=== PATIENT | male | born 1940 | race Caucasian/White ===

== ENCOUNTER 2016-06-14 12:41 | Day surgery (SDC) | payer MEDICARE, BC ==
[~2016-06-14 12:41] MED LIST: ASPIR 8181 M1 PO; AVELOX400 MG PO; BACTRIM DS TAB1 EAC2 PO; CALCIUM 600 +1 EA23 PO; CLINDAMYCIN HC300 M2 PO; COLACE100 MG PO; FLAGYL500 MG PO; FLOMAX0.4 M1 PO; GLIPIZIDE10 M1 PO; GLUCOPHAGE1000 M1 PO; GLUCOPHAGE1000 MG PO; HORMONE INJECTION; HUMALOG100 U/ML SC; HUMULIN 70100 UNIT/2 SC; HUMULIN 70100 UNIT/2 SQ; LEVAQUIN750 MG PO; LEVEMIR100 U/M SC; LOPRESSOR50 M1 PO; LORTAB 5-325 M1 EAC1 PO; MOXIFLOXACIN H400 MG PO; NEURONTIN600 M1 PO; NEURONTIN600 MG PO; NORCO 5/3251 TA1 PO; NOVOLIN 70100 UNITS/ SC; PROBIOTIC1 EA10 PO
[2016-06-14 13:27] LABS: BASO % 0.2 % (0-2); EOS % 1.6 % (0-7); EOSINOPHIL ABSOLUTE COUNT 0.1 tho/cmm (0.0-0.7); HCT-HEMATOCRIT 39.6 % (36.0-53.5); HGB-HEMOGLOBIN 12.9 gm/dl (13.5-17.0); IMMATURE GRANULOCYTES ABSOLUTE 0.02 tho/cmm (0-0.03); IMMATURE GRANULOCYTES PERCENT 0.4 % (0-0.3); LYMPH % 8.9 % (20-45); LYMPH ABSOLUTE COUNT 0.5 tho/cmm (0.8-4.5); MCHC MEAN CORPUSCULAR HGB CONC 32.6 % (32.0-36.0); MCV (MEAN CELL VOLUME) 86.1 fl (82.0-96.0); MEAN PLATELET VOLUME 11.3 cmc (9.4-12.4); MONO % 14.8 % (0-12); MONOCYTE ABSOLUTE COUNT 0.8 tho/cmm (0.0-1.2); NEUTROPHIL ABSOLUTE COUNT 4.2 tho/cmm (1.6-8.0); NEUTROPHIL-AUTOMATED 4.2 tho/cmm (1.6-8.0); NEUTROPHILS % 74.1 % (40-80); PLATELET COUNT 185 tho/cmm (150-450); RED CELL DISTRIBUTION WIDTH 13.9 % (12.4-16.4); WHITE BLOOD COUNT 5.6 tho/cmm (4.0-10.0)
[2016-06-14 13:35] LABS: ANION GAP 16 mmol/L (0-20); BLOOD UREA NITROGEN 26 mg/dl (6-24); CALCIUM 9.2 mg/dl (8.5-10.5); CARBON DIOXIDE-VENOUS 21 mmol/L (22-32); CHLORIDE 108 mmol/l (96-110); CREATININE 1.86 mg/dl (0.60-1.30); GLUCOSE 96 mg/dL (70-110); POTASSIUM 4.1 mmol/L (3.7-5.1); SODIUM 141 mmol/L (135-145); eGFR VALUE FOR BLACK 40 mL/Min
[2016-09-17] MEDS ORDERED: VIBRAMYCIN100 M1 PO (14:33)
== END 2016-06-14 17:45 ==
LOC: SRG 12:41 → SHSB 12:42
PROVIDERS: Anesthesiology
PROC: 0SBL0ZZ Excision of Left Tarsometatarsal Joint, Open Approach (ICD-10-PCS; principal; 2016-06-14)
DX: E11.69 Type 2 diabetes mellitus with other specified complication (principal); M86.8X7 Other osteomyelitis, ankle and foot; E11.40 Type 2 diabetes mellitus with diabetic neuropathy, unspecified; I10 Essential (primary) hypertension; Z79.899 Other long term (current) drug therapy; Z88.0 Allergy status to penicillin; Z88.8 Allergy status to other drugs, medicaments and biological substances; Z89.511 Acquired absence of right leg below knee
CPT/HCPCS: J0171; J2250; J3370; J7999